=== PATIENT | female | born 1990 | race African-American/Black ===

== ENCOUNTER 2021-08-05 22:50 | Emergency (ER) | payer SELFPAY ==
[~2021-08-05] VITALS: Ht 157.5 cm; Wt 54.4 kg
[2021-08-05] MEDS ORDERED: IBUPROFEN 600 MG TAB PO STA (23:12)
== END 2021-08-06 00:45 | disposition home or self-care (01) ==
LOC: ER 23:24
DX: S90.415A Abrasion, left lesser toe(s), initial encounter (principal); W22.09XA Striking against other stationary object, initial encounter; Y93.01 Activity, walking, marching and hiking; Y92.008 Other place in unspecified non-institutional (private) residence as the place of occurrence of the external cause
CPT/HCPCS: 99282